=== PATIENT | female | born 1970 | race Caucasian/White ===

== ENCOUNTER → 2016-08-17 | Outpatient (CLI) | payer OTHER ==
[~2016-08-17] MED LIST: BND25 PO; FLUO10CA48 PO; FLUT0.15 NAE; NITR1CAP16 PO; OPTIRAY 300 IV PRN; OXYC7.5T65 PO; TAMS0.4C38 PO
--- NOTE | 2016-08-17 14:25 | DIAGNOSTIC IMAGING REPORT ---
IVP W/OR W/O TOMOGRAMS CLINICAL HISTORY: N39.0 UTI (urinary tract infection) COMPARISON STUDY: No previous studies for comparison. FINDINGS: Sign Language Instructor film reveals an 11 mm mid pole left renal calculus. There is no pathologic bowel dilatation. The patient was injected 100 cc of Optiray 300. The 1 minute film reveals prompt bilateral nephrograms. The right kidney measured 14.7 cm. The left kidney measuring 15.9 cm. There is prompt bilateral excretion. 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 There is no current evidence of obstruction. There is no ureteral dilatation. No collecting system or ureteral filling defects are visualized. There is a small post void residual. IMPRESSION: 1. Nonobstructing 11 millimeter mid pole left renal calculus 2. Bifid left renal collecting system 3. No current evidence of obstruction 4. Mild post void bladder residual Electronically signed by: Jose Elias Vuong M.D. 08/17/2016 2:23 PM Dictated Date/Time: 08/17/2016 2:18 PM
== END | disposition home or self-care (01) ==
LOC: C.RAD 12:26
PROVIDERS: ATTEND Urology
DX: N39.0 Urinary tract infection, site not specified (principal)

== ENCOUNTER → 2016-09-14 | Day surgery (SDC) | payer OTHER ==
--- NOTE | 2016-08-31 11:22 | DIAGNOSTIC IMAGING REPORT ---
CHEST 2 VIEWS ROUTINE CLINICAL HISTORY: Nephrolithiasis. Preprocedure evaluation. COMPARISON STUDY: No previous studies for comparison. FINDINGS: Lung volumes are normal. There is no pneumothorax or pleural effusion. Pulmonary vascularity is normal. Cardiac size is normal. Mediastinal contours are normal. There is no evidence of pulmonary edema. IMPRESSION: No acute cardiopulmonary findings. Electronically signed by: Anthony Acuña M.D. 08/31/2016 11:19 AM Dictated Date/Time: 08/31/2016 11:19 AM
[2016-08-31 11:30] LABS: BASO % 0.9 %; BASO ABS # 0.06 K/uL (0-0.2); COMPLETE YES; EOS % 1.5 %; HEMATOCRIT 44.2 % (37-47); IG% 0.1 %; LYMPH % 26.2 %; LYMPH ABS # 1.76 K/uL (1.2-3.4); MEAN CELL VOLUME 92.1 fL (80-100); MEAN CORPUSCULAR HEMOGLOBIN 31.9 pg (25-34); MEAN CORPUSCULAR HGB CONC 34.6 g/dl (32-36); MEAN PLATELET VOLUME 10.2 fL (7.4-10.4); MONO % 9.2 %; NEUT % 62.1 %; PLATELET COUNT 273 K/uL (130-400); WHITE BLOOD COUNT 6.71 K/uL (4.8-10.8)
[2016-08-31 11:43] LABS: BLOOD UREA NITROGEN 11 mg/dl (7-18); CARBON DIOXIDE 27 mmol/L (21-32); CHLORIDE 107 mmol/L (98-107); CREATININE 0.78 mg/dl (0.60-1.20); POTASSIUM 4.1 mmol/L (3.5-5.1); SODIUM 141 mmol/L (136-145)
[2016-08-31 11:46] LABS: URINE APPEARANCE CLEAR (CLEAR); URINE BILIRUBIN NEG (NEG); URINE COLOR YELLOW; URINE EPITHELIAL CELL AUTO >30 /lpf (0-5); URINE NITRITE NEG (NEG); URINE SPECIFIC GRAVITY 1.003 (1.000-1.030); UROBILINOGEN NEG (NEG)
[2016-08-31 11:51] LABS: MANUAL MICROSCOPIC REQUIRED? NO; REVIEW REQ? NO
[2016-09-04 07:38] VITALS: Ht 160 cm; Wt 72.7 kg
[~2016-09-14] VITALS: Ht 160 cm; Wt 72.7 kg
[~2016-09-14] MED LIST changes: +ATROPINE SULFATE 0.1 MG/ML 5ML SYR IV PRN; +CIPROFLOXACIN 400MG / D5W IV SCH; +DEXAMETHASONE SOD INJ 4 MG/ML VIAL ONE; +EpHEDrine SULFATE INJ 50 MG/ML AMP IV PRN; +FENTANYL CITRATE INJ 50 MCG/1 ML 2 ML VIAL ONE; +FLUMAZENIL 0.1 MG/1 ML 10 ML VIAL IV PRN; +HYDROmorphone INJ 2 MG/ML SYR/VIAL IV PRN; +LABETALOL HCL IV 5 MG/ML 20ML IV PRN; +LIDOCAINE HCL 2% 2 ML VIAL (20MG/ML) ONE; +MEPERIDINE HCL 25 MG/ML CARP IV PRN; +MIDAZOLAM HCL 1 MG/ML 2ML VIAL ONE; +NALOXONE HCL 0.4 MG/1 ML VIAL/CARP IV PRN; +ONDANSETRON INJ 2 MG/ML 2 ML VIAL IV PRN; +ONDANSETRON INJ 2 MG/ML 2 ML VIAL ONE; -OPTIRAY 300 IV PRN; +OXYCODONE/ACETAMINOPHEN 5-325 TAB PO PRN; +PHENYLEPHRINE 100MCG/ML 5ML SYR IV PRN; +PROPOFOL IV EMULSION 10 MG/ML 20 ML VIAL IV ONE; +SCOPOLAMINE 1.5 MG TDSY TD ONE
--- NOTE | 2016-09-14 07:35 | DIAGNOSTIC IMAGING REPORT ---
KUB CLINICAL HISTORY: Nephrolithiasis COMPARISON STUDY: 08/17/2016 FINDINGS: There is a 13 mm calcification projected over the left kidney consistent with a calculus. There is no pathologic bowel dilatation. There are no calcifications along the course of either ureter. There is a bone island within the right ischium. IMPRESSION: 1. 13 mm left renal calculus 2. No evidence of pathologic bowel dilatation. Electronically signed by: Jose Elias Vuong M.D. 09/14/2016 7:33 AM Dictated Date/Time: 09/14/2016 7:32 AM
--- NOTE | 2016-09-14 07:52 | History & Physical Bridge Note ---
H&P Re-Evaluation Bridge Note: I have examined the patient, reviewed the History & Physical and in the interval since the performance of the History & Physical I have noted the following changes of clinical significance: No changes noted
[2016-09-14] MEDS: LACTATED RINGER'S 1000ML 1,000 ML IV SCH ×2 (08:17→11:08)
--- NOTE | 2016-09-14 10:39 | Discharge Instructions ---
Discharge Instructions Admission Reason for Admission: Stones; Nephrolithiasis N20.0 Discharge Discharge Diagnosis / Problem: L renal stone ESWL Discharge Goals Goal(s): Decrease discomfort, Increase independence, Improve disease control, Therapeutic intervention Activity Recommendations Activity Limitations: as noted below Lifting Limitations: gradually increase as tolerated Exercise/Sports Limitations: gradually increase as tolerated May Resume Sexual Activity: when tolerated Shower/Bathe: no limitations Driving or Machine Use: resume 1 day after discharge . Instructions / Follow-Up Instructions / Follow-Up Follow-up as planned in office with [facility] Xray prior to visit. Strain urine and bring in stone fragments to visit. Discharge Diet Recommended Diet: Regular Diet (good fluid intake) Procedures Procedures Performed: Left Extracorporeal Shock Wave Lithotripsy Pending Studies Studies pending at discharge: no Medical Emergencies . Who to Call and When: Medical Emergencies: If at any time you feel your situation is an emergency, please call 911 immediately. . Non-Emergent Contact Non-Emergency issues call your: Urologist Call Non-Emergent contact if: you have a fever, temperature is above 101, your pain is not controlled, your pain is worsening, your pain is concerning you, you have any medication questions . . "Provider Documentation" section prepared by Jose J Cochran. VTE Core Measure Inpt VTE Proph given/why not?: SCD's [place] Drug Monitoring Program Search Results: patient reviewed within database, see additional documentation (Rx last month)
[2016-09-14] MEDS: FENTANYL CITRATE INJ 50 MCG/1 ML 2 ML VIAL IV PRN ×2 (11:03→11:09)
--- NOTE | 2016-09-14 11:13 | OPERATIVE REPORT ---
DATE OF OPERATION: 09/14/2016 PREOPERATIVE DIAGNOSIS: Left renal stone. POSTOPERATIVE DIAGNOSIS: Same. PROCEDURE: Left-sided renal extracorporeal shockwave lithotripsy. SURGEON: Dr. Jose J Cochran. EXAMINATION SCORER: None. ANESTHESIA: General anesthesia with laryngeal mask. COMPLICATIONS: None. FINDINGS: Good stone fragmentation on fluoroscopy. DETAILS OF PROCEDURE: The patient was brought to the litho suite. He was correctly identified and the stone was visualized on his most recent x-rays. After the correct time out was performed the patient was positioned over the therapy head. An adequate level of anesthesia was administered. The extracorporeal shockwave lithotripsy treatment was then commenced. Please see the [facility] sheet for complete treatment summary. After completion of the procedure the patient was taken to the recovery room in stable condition. I attest to the content of the Intraoperative Record and any orders documented therein. Any exceptio ns are noted below.
--- NOTE | 2016-09-14 11:39 | Anesthesia Progress Nt - [facility] ---
Anesthesia Post Op Note Date & Time Sep 14, 2016 at 11:39 Vital Signs Pain Intensity: 4 Vital Signs Past 12 Hours Date Time Temp Pulse Resp B/P Pulse Ox O2 Delivery O2 Flow Rate FiO2 09/14/16 11:23 37.2 124/80 09/14/16 11:20 76 12 09/14/16 11:20 75 12 98 09/14/16 11:18 110/66 09/14/16 11:15 65 12 09/14/16 11:15 65 12 99 09/14/16 11:13 106/71 09/14/16 11:10 64 12 09/14/16 11:10 65 12 99 09/14/16 11:08 108/72 09/14/16 11:05 67 11 99 09/14/16 11:05 69 11 09/14/16 11:03 122/70 09/14/16 11:00 67 13 09/14/16 11:00 67 13 99 09/14/16 10:58 123/79 09/14/16 10:55 64 15 99 09/14/16 10:55 63 15 09/14/16 10:53 121/75 09/14/16 10:50 70 14 09/14/16 10:50 70 14 99 09/14/16 10:48 127/77 09/14/16 10:46 36.6 70 16 124/84 100 Mask 6 09/14/16 10:45 74 09/14/16 10:45 74 100 09/14/16 07:56 36.8 77 16 142/87 97 Room Air Notes Mental Status: alert / awake / arousable, participated in evaluation Pt Amnestic to Procedure: Yes Nausea / Vomiting: adequately controlled Pain: adequately controlled Airway Patency, RR, SpO2: stable & adequate BP & HR: stable & adequate Hydration State: stable & adequate Anesthetic Complications: no major complications apparent
--- NOTE | 2016-09-14 11:52 | [facility] Post Operative Brief Note ---
Immediate Operative Summary Operative Date Sep 14, 2016. Pre-Operative Diagnosis Left Renal Calculi Post-Operative Diagnosis Same Procedure(s) Performed Left Extracorporeal Shock Wave Lithotripsy Surgeon Dr. Estevan Cochran Field Services Manager Surgeon(s) None Estimated Blood Loss 0 mL Findings Good stone fragmentation on fluoro Specimens None Anesthesia [facility] Complication(s) None Disposition Recovery Room / PACU
[2016-09-14 12:00] VITALS: BP 114/71; PULSE 63; O2SAT 96
== END | disposition home or self-care (01) ==
LOC: X.SURG 07:27
PROVIDERS: ATTEND Urology
DX: N20.0 Calculus of kidney (principal); M19.90 Unspecified osteoarthritis, unspecified site; N84.1 Polyp of cervix uteri; F41.8 Other specified anxiety disorders; N39.3 Stress incontinence (female) (male); N39.0 Urinary tract infection, site not specified; Z80.3 Family history of malignant neoplasm of breast; Z82.49 Family history of ischemic heart disease and other diseases of the circulatory system; Z83.3 Family history of diabetes mellitus; Z81.8 Family history of other mental and behavioral disorders; Z78.9 Other specified health status

== ENCOUNTER → 2016-10-09 | Outpatient (CLI) | payer OTHER ==
[~2016-10-09] MED LIST changes: -ATROPINE SULFATE 0.1 MG/ML 5ML SYR IV PRN; -CIPROFLOXACIN 400MG / D5W IV SCH; -DEXAMETHASONE SOD INJ 4 MG/ML VIAL ONE; -EpHEDrine SULFATE INJ 50 MG/ML AMP IV PRN; -FENTANYL CITRATE INJ 50 MCG/1 ML 2 ML VIAL ONE; -FLUMAZENIL 0.1 MG/1 ML 10 ML VIAL IV PRN; -HYDROmorphone INJ 2 MG/ML SYR/VIAL IV PRN; -LABETALOL HCL IV 5 MG/ML 20ML IV PRN; -LIDOCAINE HCL 2% 2 ML VIAL (20MG/ML) ONE; -MEPERIDINE HCL 25 MG/ML CARP IV PRN; -MIDAZOLAM HCL 1 MG/ML 2ML VIAL ONE; -NALOXONE HCL 0.4 MG/1 ML VIAL/CARP IV PRN; -NITR1CAP16 PO; -ONDANSETRON INJ 2 MG/ML 2 ML VIAL IV PRN; -ONDANSETRON INJ 2 MG/ML 2 ML VIAL ONE; -OXYCODONE/ACETAMINOPHEN 5-325 TAB PO PRN; -PHENYLEPHRINE 100MCG/ML 5ML SYR IV PRN; -PROPOFOL IV EMULSION 10 MG/ML 20 ML VIAL IV ONE; -SCOPOLAMINE 1.5 MG TDSY TD ONE
--- NOTE | 2016-10-09 15:23 | DIAGNOSTIC IMAGING REPORT ---
KUB CLINICAL HISTORY: Nephrolithiasis. COMPARISON STUDY: IVP August 17, 2016 and KUB September 14, 2016. FINDINGS: The left renal calculus shown on exam of September 14, 2016 is no longer visualized. Bowel gas pattern is normal. There is a moderate amount of stool within the colon. IMPRESSION: No urinary calculi identified. The left renal calculus shown on exam of September 14, 2016 is not visualized. Electronically signed by: Anthony Acuña M.D. 10/09/2016 3:21 PM Dictated Date/Time: 10/09/2016 3:20 PM
== END | disposition home or self-care (01) ==
LOC: C.RAD 14:36
PROVIDERS: ATTEND Urology
DX: N20.0 Calculus of kidney (principal)

== ENCOUNTER → 2016-10-09 | Outpatient (CLI) | payer OTHER | END | disposition home or self-care (01) | LOC: C.LABSPEC 11:05 | PROVIDERS: ATTEND Urology | DX: N20.0 Calculus of kidney (principal) ==

== ENCOUNTER 2017-06-26 08:47 | Emergency (ER) | payer OTHER ==
[~2017-06-26] VITALS: Ht 160 cm; Wt 76.1 kg
[~2017-06-26 08:47] MED LIST changes: -AMOX875T PO; -ASTIN/15 NAE
[2017-06-26 08:51] VITALS: TEMP 36.6; Ht 160 cm; Wt 76.1 kg
[2017-06-26] MEDS ORDERED: AMOX875T PO (09:04)
[2017-06-26] MEDS ORDERED: ASTIN/15 NAE (09:04)
--- NOTE | 2017-06-26 09:53 | DIAGNOSTIC IMAGING REPORT ---
L KNEE 3 VIEWS CLINICAL HISTORY: Left knee pain. No recent trauma. COMPARISON: None FINDINGS: Alignment of the left knee is anatomic. No fracture or joint effusion is present. Joint spaces are preserved. There is mild osteophytosis within the patellofemoral compartment. IMPRESSION: 1. No acute fracture or joint effusion of the left knee. 2. Preserved joint spaces with mild osteophytosis of the left knee. Electronically signed by: Anthony Acuña M.D. 06/26/2017 9:51 AM Dictated Date/Time: 06/26/2017 9:51 AM
[2017-06-26 10:35] VITALS: BP 165/95; PULSE 85; O2SAT 100
--- NOTE | 2017-06-26 10:37 | EMERGENCY ROOM VISIT NOTE ---
ED Visit Note First contact with patient: 08:58 CHIEF COMPLAINT: Left knee pain 2 and half weeks HISTORY OF PRESENT ILLNESS: Patient is a healthy 46-year-old white female who presents to emergency department for evaluation of left knee pain. She's had symptoms for about 2-1/2 weeks. There was no inciting injury or direct trauma to the knee. She does work cleaning homes. She notes that the knee is painful , warm and becomes swollen at the end of her day. She states that it is painful when she tries to bend it, when she goes up and down steps. She's tried to ice and elevate and has taken Aleve for her symptoms. She denies any locking, cracking or popping. No prior history of injuries or surgery to this knee. She rates her discomfort a 5/10. REVIEW OF SYSTEMS: Review of systems as per HPI. All other systems reviewed were negative. At least 6 systems reviewed. PMH: Electronic medical records are reviewed and summarized as above/below. See Problem List. SOCIAL HISTORY: Patient lives at home with her spouse. Employed. Nonsmoker. PHYSICAL EXAM: Vital Signs: Reviewed Nurse's notes. MENTAL STATUS: Alert, oriented, and cooperative. KNEE: Examination of the left knee does not demonstrate any significant extra-articular soft tissue swelling. No erythema, increased warmth or induration. There is no knee joint effusion palpable. She has some peripatellar tenderness, and crepitus with range of motion. Slight lateral joint line discomfort. Range of motion is otherwise full. No gross ligament instability is detected. Gait is normal. Left lower extremity is neurovascularly intact. EMERGENCY DEPARTMENT COURSE: X-rays of the left knee were obtained, and were essentially unremarkable. Differential diagnoses entertained include joint effusion, osteoarthritis, chondromalacia, meniscal tear, patellofemoral pain syndrome, among others. The patient was encouraged to continue conservative care, and was advised to follow-up with orthopedics for further care and management if her symptoms are not improving. Medication reconciliation: I attest that I have personally reviewed the patient' s current medication list. Blood pressure screening: Patient was found to have a slightly elevated blood pressure due to circumstances. I do not believe that the patient requires hypertension monitoring. L KNEE 3 VIEWS CLINICAL HISTORY: Left knee pain. No recent trauma. COMPARISON: None FINDINGS: Alignment of the left knee is anatomic. No fracture or joint effusion is present. Joint spaces are preserved. There is mild osteophytosis within the patellofemoral compartment. IMPRESSION: 1. No acute fracture or joint effusion of the left knee. 2. Preserved joint spaces with mild osteophytosis of the left knee. Problem List Medical Problems: (1) Calculus Of Kidney Status: Chronic Current/Historical Medications Scheduled Amoxicillin & Pot Clavulanate (Augmentin 875-125 mg), 1 TAB PO BID Azelastine HCl (Astepro), 2 SPRAY CHANTAL BID Diphenhydramine Hcl (Benadryl), 50 MG PO HS Fluoxetine (Prozac), 10 MG PO QAM Fluticasone Propionate (Nasal) (Flonase Allergy Relief), 1 SPRAY CHANTAL HS Allergies Coded Allergies: No Known Allergies (Unverified , 06/26/17) Vital Signs Date Time Temp Pulse Resp B/P (MAP) Pulse Ox O2 Delivery O2 Flow Rate FiO2 06/26/17 10:35 85 20 165/95 100 06/26/17 08:51 36.6 72 18 147/93 96 Room Air Departure Information Impression Primary Impression: Knee pain Referrals Esdras Pryor D.O. (PCP) Mark Cast M.D. [facility] Jarvis Gurrola M.D. [facility] Orth[facility] Patient Instructions [facility] Additional Instructions Ibuprofen(Motrin, Advil) may be used for fever or pain. Use 600mg every six hours as needed. Take with food. Avoid using more than 2400mg in a 24 hour period. Do not use 2400mg per day for more than three consecutive days without physician direction. Prolonged inappropriate use can lead to stomach upset or ulcers. This medication can be taken if you need to drive, work, or perform activities which may be dangerous when taking narcotic pain medication. (AND/OR) Acetaminophen(Tylenol) may be used for fever or pain. Use 1000mg every six hours as needed. Avoid using more than 3000mg in a 24 hour period. This medication can be taken if you need to drive, work, or perform activities which may be dangerous when taking narcotic pain medication. Ice compresses for 20 minutes at a time four times daily for 2-3 days. Rest and elevate your injury. Continue current medications. Return to the ER immediately for any numbness, tingling, severe pain, extreme swelling in the extremity or as needed. Follow-up with orthopedics for further care and evaluation of your knee pain. Problem Qualifiers Primary Impression: Knee pain Chronicity: acute Laterality: left Qualified Codes: M25.562 - Pain in left knee
== END 2017-06-26 10:51 | disposition home or self-care (01) ==
LOC: C.EDB 08:49
DX: M25.562 Pain in left knee (principal); Z87.442 Personal history of urinary calculi

== ENCOUNTER → 2017-06-26 | Outpatient (CLI) | payer OTHER ==
[~2017-06-26] MED LIST changes: +AMOX875T PO; +ASTIN/15 NAE; -BND25 PO; +DIPH25CA5 PO; -OXYC7.5T65 PO
--- NOTE | 2017-06-26 08:47 | DIAGNOSTIC IMAGING REPORT ---
KUB CLINICAL HISTORY: N20.0 [id number] COMPARISON STUDY: 10/09/2016 FINDINGS: There is no pathologic bowel dilatation. There are no calcification suspicious for urinary tract calculi. IMPRESSION: No urinary tract calculi are visualized on conventional radiographic imaging Electronically signed by: Jose Elias Vuong M.D. 06/26/2017 8:45 AM Dictated Date/Time: 06/26/2017 8:45 AM
== END | disposition home or self-care (01) ==
LOC: C.RAD 08:21
PROVIDERS: ATTEND Urology
DX: N20.0 Calculus of kidney (principal)